=== PATIENT | male | born 1980 | race Caucasian/White ===

== ENCOUNTER 2019-09-12 19:49 | Emergency (ER) | payer OTHER ==
[~2019-09-12] VITALS: Ht 188 cm; Wt 108.9 kg
[2019-09-12 20:22] VITALS: BP 144/86
[2019-09-12] MEDS ORDERED: cefTRIAXone SOD 1,000 MG VL IM ONE (21:15)
== END 2019-09-12 22:24 | disposition home or self-care (01) ==
LOC: ER 19:49
DX: S62.636A Displaced fracture of distal phalanx of right little finger, initial encounter for closed fracture (principal); S61.216A Laceration without foreign body of right little finger without damage to nail, initial encounter
CPT/HCPCS: 29130; 73130; 96372; 99283; J0696